=== PATIENT | female | born 1935 | race Caucasian/White ===

== ENCOUNTER 2016-08-09 09:45 | Outpatient (CLI) | payer MEDICARE, OTHER ==
[2015-10-21 13:44] VITALS: BP 142/60
== END 2016-08-09 09:46 ==
LOC: CARD 09:45
PROVIDERS: ATTEND Nurse Practitioner
DX: I10 Essential (primary) hypertension (principal); I35.0 Nonrheumatic aortic (valve) stenosis; K21.9 Gastro-esophageal reflux disease without esophagitis
CPT/HCPCS: 93005; G0463

== ENCOUNTER 2016-08-20 07:18 | Outpatient (CLI) | payer MEDICARE, OTHER ==
[2015-10-21 13:44] VITALS: BP 142/60
[2016-08-20 07:53] LABS: BASOPHILS % 0.6 (0.0-1.5); EOSINOPHILS % 3.7 % (0.0-6.8); MEAN CORPUSCULAR HEMOGLOBIN 28.2 pg (28.0-34.0); MEAN CORPUSCULAR VOLUME 86.7 fl (80.0-100.0); MONOCYTES % 5.5 % (0.0-11.0); NEUTROPHILS # 6.1 # k/uL (1.4-7.7)
[2016-08-20 08:07] LABS: eGFR (African) > 60; eGFR (Non-African) > 60
== END 2016-08-20 07:20 ==
LOC: LAB 07:18
PROVIDERS: ATTEND Nurse Practitioner
DX: I10 Essential (primary) hypertension (principal); I35.0 Nonrheumatic aortic (valve) stenosis; I71.2 Thoracic aortic aneurysm, without rupture; K21.9 Gastro-esophageal reflux disease without esophagitis
CPT/HCPCS: 36415; 80053; 80061; 84443; 85025

== ENCOUNTER 2016-08-29 11:14 | Outpatient (CLI) | payer MEDICARE, OTHER ==
[2015-10-21 13:44] VITALS: BP 142/60
== END 2016-08-29 11:15 ==
LOC: LABRHC 11:14
PROVIDERS: ATTEND Physician Assistant
DX: R30.0 Dysuria (principal)
CPT/HCPCS: 87086

== ENCOUNTER 2016-11-15 09:57 | Outpatient (CLI) | payer MEDICARE, OTHER ==
[2015-10-21 13:44] VITALS: BP 142/60
[2016-11-15 10:19] LABS: BASOPHILS % 0.5 (0.0-1.5); EOSINOPHILS % 1.2 % (0.0-6.8); MEAN CORPUSCULAR HEMOGLOBIN 28.8 pg (28.0-34.0); MEAN CORPUSCULAR VOLUME 89.1 fl (80.0-100.0); MONOCYTES % 3.5 % (0.0-11.0); NEUTROPHILS # 9.3 # k/uL (1.4-7.7)
[2016-11-15 10:35] LABS: eGFR (African) > 60; eGFR (Non-African) > 60
== END 2016-11-15 10:03 ==
LOC: LAB 09:57
PROVIDERS: ATTEND Physician Assistant
DX: R42 Dizziness and giddiness (principal); R73.09 Other abnormal glucose; E78.1 Pure hyperglyceridemia
CPT/HCPCS: 36415; 80053; 80061; 83036; 84484; 85025

== ENCOUNTER 2016-11-21 07:59 | Outpatient (CLI) | payer MEDICARE, OTHER ==
[2015-10-21 13:44] VITALS: BP 142/60
[2016-11-21 08:12] LABS: APPEARANCE,URINE Cloudy (CLEAR); COLOR,URINE Yellow (YELLOW); OCCULT BLOOD,URINE Negative (NEGATIVE); UROBILINOGEN URINE 0.2 Eu (0.2-1.0)
== END 2016-11-21 09:06 ==
LOC: LAB 07:59
PROVIDERS: ATTEND Physician Assistant
DX: D72.825 Bandemia (principal); R53.81 Other malaise; R53.83 Other fatigue
CPT/HCPCS: 81002

== ENCOUNTER 2017-04-24 10:44 | Outpatient (CLI) | payer MEDICARE, OTHER ==
[2015-10-21 13:44] VITALS: BP 142/60
== END 2017-04-24 10:46 ==
LOC: LAB 10:44
PROVIDERS: ATTEND Family Medicine
DX: E11.9 Type 2 diabetes mellitus without complications (principal)
CPT/HCPCS: 36415; 83036

== ENCOUNTER 2017-12-11 10:46 | Outpatient (CLI) | payer MEDICARE, OTHER ==
[2015-10-21 13:44] VITALS: BP 142/60
[2017-12-11 11:47] LABS: eGFR (Non-African) > 60
== END 2017-12-11 10:48 ==
LOC: LAB 10:46
PROVIDERS: ATTEND Family Medicine
DX: I10 Essential (primary) hypertension (principal); R73.9 Hyperglycemia, unspecified
CPT/HCPCS: 36415; 80053; 80061; 83036

== ENCOUNTER 2018-06-24 07:59 | Outpatient (CLI) | payer MEDICARE, OTHER ==
[2015-10-21 13:44] VITALS: BP 142/60
== END 2018-06-24 08:00 ==
LOC: LAB 07:59
PROVIDERS: ATTEND Nurse Practitioner Family
DX: Z00.00 Encounter for general adult medical examination without abnormal findings (principal); R73.9 Hyperglycemia, unspecified
CPT/HCPCS: 36415; 80061; 83036

== ENCOUNTER 2018-12-17 07:43 | Outpatient (CLI) | payer MEDICARE, OTHER ==
[2015-10-21 13:44] VITALS: BP 142/60
[2018-12-17 08:37] LABS: A1C 6.6 % (<5.7); HDL 37 mg/dL (>40); eGFR (Non-African) > 60
== END 2018-12-17 07:45 ==
LOC: LAB 07:43
PROVIDERS: ATTEND Family Medicine
DX: E11.9 Type 2 diabetes mellitus without complications (principal)
CPT/HCPCS: 36415; 80053; 80061; 83036

== ENCOUNTER 2018-12-28 14:13 | Outpatient (CLI) | payer MEDICARE, OTHER ==
[2015-10-21 13:44] VITALS: BP 142/60
== END 2018-12-28 14:15 ==
LOC: LABRHC 14:13
PROVIDERS: ATTEND Family Medicine
DX: R30.0 Dysuria (principal)
CPT/HCPCS: 87086